=== PATIENT | female | born 1975 | race Caucasian/White ===

== ENCOUNTER 2019-08-21 22:33 | Inpatient (IN) ==
[2019-08-22] MEDS ORDERED: Nicotine 2 MG GUM BC PRN (00:42)
[2019-08-22] MEDS ORDERED: Naloxone 0.4 MG/ML INJ IVP PRN (00:42)
[2019-08-22] MEDS ORDERED: *HR* Heparin 5,000 UNIT/ML VIAL IVP ONE (00:44)
[2019-08-22] MEDS ORDERED: *HR* Heparin 5,000 UNIT/ML VIAL IVP PRN ×2 (00:44)
[2019-08-22] MEDS ORDERED: 0.9 % Sodium Chloride 1,000 ML IVC SCH (00:45)
[2019-08-22] MEDS: Nicotine 14 MG PATCH.TD24 TD SCH ×2 (01:17→19:54)
[2019-08-22] MEDS: Heparin 25,000 UNIT/250 ML D5W 25,000 UNIT/250 ML IV.SOLN IVC SCH (01:18)
[2019-08-22 01:54] LABS: Bilirubin,Urine Negative (Negative); Blood,Urine Negative (Negative); Color,Urine Yellow (Yellow); Glucose,Urine (UA) Normal (Normal); Ketones,Urine Negative (Negative); Leukocyte Esterase,Urine Small (Negative); Nitrite,Urine Negative (Negative); Protein,Urine Negative (Neg-Trace); Specific Gravity,Urine 1.018 (1.010-1.025); Urobilinogen,Urine Normal (Normal)
[2019-08-22 01:56] LABS: Hyaline Casts,Urine None Seen per lpf (None-Few); Squamous Epithelial Cell,Urine Many per lpf (None-Few); WBC,Urine 0-3 per hpf (0-3)
[2019-08-22 01:58] LABS: Clarity,Urine Slightly Hazy (Clear)
[2019-08-22 02:08] LABS: Bacteria,Urine Few per hpf (None-Few)
[2019-08-22 02:08] LABS: Basophils # 0.1 K/mcL (0.0-0.2); Basophils % 0.8 %; Eosinophils # 0.3 K/mcL (0.0-0.6); Eosinophils % 2.6 %; Hematocrit 40.8 % (35.3-44.9); Immature Granulocytes % 0.9 % (0-4); Lymphocytes # 2.8 K/mcL (0.6-4.6); Mean Corpuscular HGB Conc 31.9 g/dL (31.6-35.5); Mean Corpuscular Hemoglobin 29.8 pg (28.0-33.3); Mean Corpuscular Volume 93.6 fL (83.0-100.0); Mean Platelet Volume 10.7 fL (9.4-12.4); Monocytes # 0.8 K/mcL (0.0-1.3); Monocytes % 7.8 %; Neutrophils # 5.6 K/mcL (1.6-8.9); Platelet Count 284 K/mcL (140-400); Red Blood Count 4.36 M/mcL (3.82-4.97); Red Cell Distribution Width 13.2 % (11.5-14.5); Segmented Neutrophils % 58.9 %; White Blood Count 9.6 K/mcL (4.3-11.1)
[2019-08-22 02:28] LABS: Alanine Aminotransferase 25 Units/L (7-52); Albumin 3.8 g/dL (3.5-5.7); Albumin/Globulin Ratio 1.4 (1.1-2.2); Alkaline Phosphatase 65 Units/L (34-104); Aspartate Amino Transferase 19 Units/L (13-39); BUN/Creatinine Ratio 9 (6-26); Bilirubin,Total 0.3 mg/dL (0.3-1.0); Blood Urea Nitrogen 7 mg/dL (6-20); Calcium 8.7 mg/dL (8.6-10.3); Carbon Dioxide 25 mEq/L (23-29); Chloride 108 mEq/L (98-107); Chol/HDL Ratio 7.6 (0-4.9); Cholesterol 197 mg/dL (< 200); Globulin 2.8 g/dL (2.4-3.5); Glucose 96 mg/dL (70-105); HDL Cholesterol 26 mg/dL (40-59); LDL Cholesterol,Calculated 136 mg/dL (0-99); Osmolality,Calculated 286 (280-300); Phosphorous 3.4 mg/dL (2.7-4.5); Potassium 3.8 mEq/L (3.5-5.1); Sodium 139 mEq/L (136-145); Total Protein 6.6 g/dL (6.4-8.9); Triglycerides 173 mg/dL (< 150); eGFR For African Americans > 60 (> 60); eGFR For Non-African Americans > 60 (> 60)
[2019-08-22 03:10] LABS: Thyroid Stimulating Hormone 10.508 mcIU/mL (0.340-5.600)
[2019-08-22] MEDS: Spironolactone 25 MG TABLET PO SCH (08:14)
[2019-08-22] MEDS ORDERED: Heparin 1,000 UNITS/500 mL 500 ML ONE (09:12)
[2019-08-22] MEDS ORDERED: ISOVUE-370 200 ML INFUS..BTL ONE (09:12)
[2019-08-22] MEDS ORDERED: *HR* Heparin 10,000 UNIT/10 ML VIAL ONE (09:12)
[2019-08-22] MEDS ORDERED: 0.9 % Sodium Chloride 1,000 ML ONE (09:12)
[2019-08-22] MEDS ORDERED: Nitroglycerin 1,000 MCG/10 ML VIAL IV ONE (09:13)
[2019-08-22] MEDS ORDERED: *HR* Midazolam HCl 2 MG/2 ML VIAL ONE (09:26)
[2019-08-22] MEDS ORDERED: *HR* FentaNYL (PF) 100 MCG/2 ML VIAL ONE (09:26)
[2019-08-22 09:29] LABS: Triiodothyronine (T3) Total 1.38 ng/mL (0.87-1.78)
[2019-08-22 09:34] LABS: Estimated Average Glucose 114 mg/dl
[2019-08-22] MEDS ORDERED: Tirofiban 12.5 MG/250ML 12.5 MG/250 ML BAG ONE (10:09)
[2019-08-22] MEDS ORDERED: Tirofiban 12.5 MG/250ML 12.5 MG/250 ML BAG IVC SCH (11:00)
[2019-08-22] MEDS: Aspirin Enteric Coated 81 MG Tablet PO SCH (11:01)
[2019-08-22] MEDS ORDERED: Nitroglycerin 0.4 MG TAB.SUBL SL PRN (11:10)
[2019-08-22] MEDS ORDERED: Nitroglycerin 0.4 MG TAB.SUBL SL ONE (11:12)
[2019-08-22] MEDS ORDERED: SUMAtriptan succinate 50 MG TABLET PO PRN (12:03)
[2019-08-22] MEDS ORDERED: tiZANidine 4 MG TABLET PO PRN (12:03)
[2019-08-22] MEDS ORDERED: Isosorbide MONOnitrate (24 HR) 30 MG TAB.ER.24H PO SCH (14:30)
[2019-08-23 04:25] LABS: BUN/Creatinine Ratio 9 (6-26); Blood Urea Nitrogen 8 mg/dL (6-20); Calcium 8.8 mg/dL (8.6-10.3); Carbon Dioxide 24 mEq/L (23-29); Chloride 107 mEq/L (98-107); Glucose 91 mg/dL (70-105); Magnesium 1.9 mg/dL (1.6-2.6); Osmolality,Calculated 280 (280-300); Phosphorous 3.6 mg/dL (2.7-4.5); Sodium 136 mEq/L (136-145); eGFR For African Americans > 60 (> 60); eGFR For Non-African Americans > 60 (> 60)
[2019-08-23] MEDS: Heparin 25,000 UNIT/250 ML D5W 25,000 UNIT/250 ML IV.SOLN IVC SCH (04:40)
[2019-08-23] MEDS: Spironolactone 25 MG TABLET PO SCH (08:46)
[2019-08-23] MEDS: Aspirin Enteric Coated 81 MG Tablet PO SCH (08:46)
[2019-08-23 11:50] VITALS: BP 114/65
== END 2019-08-23 13:38 | disposition home or self-care (01) | DRG 174 ==
LOC: 3BNU → SUATTDRO 23:51
PROVIDERS: ADMIT Family Medicine; ATTEND Internal Medicine

== ENCOUNTER 2020-07-25 15:31 | Observation (INO) ==
[2020-07-25] MEDS ORDERED: Ondansetron ODT 4 MG TAB.RAPDIS SL PRN (17:56)
[2020-07-25] MEDS ORDERED: Naloxone 0.4 MG/ML INJ IVP PRN (17:56)
[2020-07-25] MEDS: 0.9 % Sodium Chloride 1,000 ML IVC SCH (18:18)
[2020-07-25] MEDS: MetroNIDAZOLE 500 MG/100 ML 500 MG/100 ML BAG IVPB SCH (23:49)
[2020-07-26] MEDS: 0.9 % Sodium Chloride 1,000 ML IVC SCH (04:50)
[2020-07-26 05:54] LABS: Basophils # 0.1 K/mcL (0.0-0.2); Basophils % 0.6 %; Eosinophils # 0.2 K/mcL (0.0-0.6); Eosinophils % 2.4 %; Hematocrit 36.3 % (35.3-44.9); Hemoglobin 11.5 g/dL (11.5-15.4); Immature Granulocytes % 0.7 % (0-4); Lymphocytes # 1.9 K/mcL (0.6-4.6); Lymphocytes % 23.2 %; Mean Corpuscular HGB Conc 31.7 g/dL (31.6-35.5); Mean Corpuscular Hemoglobin 29.5 pg (28.0-33.3); Mean Corpuscular Volume 93.1 fL (83.0-100.0); Mean Platelet Volume 10.5 fL (9.4-12.4); Monocytes # 0.8 K/mcL (0.0-1.3); Neutrophils # 5.3 K/mcL (1.6-8.9); Platelet Count 232 K/mcL (140-400); Red Cell Distribution Width 13.3 % (11.5-14.5); Segmented Neutrophils % 64.1 %; White Blood Count 8.3 K/mcL (4.3-11.1)
[2020-07-26 06:13] LABS: BUN/Creatinine Ratio 6 (6-26); Blood Urea Nitrogen 5 mg/dL (6-20); Calcium 7.9 mg/dL (8.6-10.3); Carbon Dioxide 27 mEq/L (23-29); Chloride 105 mEq/L (98-107); Glucose 104 mg/dL (70-105); Osmolality,Calculated 282 (280-300); Potassium 3.8 mEq/L (3.5-5.1); Sodium 137 mEq/L (136-145); eGFR For African Americans > 60 (> 60); eGFR For Non-African Americans > 60 (> 60)
[2020-07-26] MEDS: MetroNIDAZOLE 500 MG/100 ML 500 MG/100 ML BAG IVPB SCH ×3 (09:05→23:25)
[2020-07-26] MEDS ORDERED: *HR* HYDROmorphone PF 0.5 MG/0.5 ML SYRINGE IVP PRN (12:11)
[2020-07-26] MEDS ORDERED: Promethazine 6.25 MG in Water for inj. (sterile) 20 ML IVPB PRN (12:11)
[2020-07-26] MEDS ORDERED: *HR* OxyCODONE Immed Rel 5 MG TABLET PO PRN (12:11)
[2020-07-26] MEDS ORDERED: Ondansetron 4 MG/2 ML VIAL IVP PRN (12:11)
[2020-07-26] MEDS ORDERED: *HR* Propofol 200 MG/20 ML VIAL IVP ONE (12:35)
[2020-07-26] MEDS ORDERED: *HR* FentaNYL (PF) 100 MCG/2 ML VIAL ONE (12:35)
[2020-07-26] MEDS ORDERED: *HR* Rocuronium Bromide 50 MG/5 ML VIAL ONE (12:35)
[2020-07-26] MEDS ORDERED: *HR* Midazolam HCl 2 MG/2 ML VIAL ONE (12:35)
[2020-07-26] MEDS ORDERED: Lidocaine -MPF 2% 2 ML VIAL ONE (12:35)
[2020-07-26] MEDS ORDERED: Lidocaine HCL 4 ML Topical Solution (Laryng-O-Jet Kit Sterile Pak) TP ONE (13:13)
[2020-07-26] MEDS ORDERED: CefOXitin 2,000 MG VIAL ONE (13:28)
[2020-07-26] MEDS ORDERED: Ketorolac 30 MG/ML VIAL ONE (13:56)
[2020-07-26] MEDS ORDERED: Sugammadex Sodium 200 MG/2 ML VIAL IV ONE (14:00)
[2020-07-26] MEDS ORDERED: Naloxone 0.4 MG/ML INJ IVP PRN (15:07)
[2020-07-26] MEDS ORDERED: Ondansetron ODT 4 MG TAB.RAPDIS SL PRN (15:07)
[2020-07-27] MEDS ORDERED: *HR* LORazepam 0.5 MG TABLET PO PRN (01:57)
[2020-07-27] MEDS ORDERED: Nitroglycerin 0.4 MG TAB.SUBL SL PRN (01:57)
[2020-07-27 07:55] VITALS: BP 103/66
[2020-07-27] MEDS: MetroNIDAZOLE 500 MG/100 ML 500 MG/100 ML BAG IVPB SCH (08:06)
[2020-07-27] MEDS ORDERED: Furosemide 20 MG TABLET PO SCH (09:00)
[2020-07-27] MEDS ORDERED: Aspirin Enteric Coated 81 MG Tablet PO SCH (09:00)
== END 2020-07-27 10:51 | disposition home or self-care (01) ==
LOC: 3ANU
PROVIDERS: ADMIT Internal Medicine; ATTEND Internal Medicine